=== PATIENT | female | born 1955 | race Hispanic/Latino ===

== ENCOUNTER 2021-01-30 06:13 | Day surgery (SDC) | payer MEDICARE ==
[2021-01-26 14:20] VITALS: BP 170/82
[2021-01-26 15:48] LABS: APPEARANCE,URINE SL CLOUDY (CLEAR); BILIRUBIN,URINE NEGATIVE (NEGATIVE); COLOR,URINE YELLOW (YELLOW); GLUCOSE, URINE (UA) NEGATIVE (NEGATIVE); KETONES,URINE NEGATIVE (NEGATIVE); LEUKOCYTE ESTERASE ,URINE MODERATE (NEGATIVE); NITRATE,URINE POSITIVE (NEGATIVE); OCCULT BLOOD,URINE NEGATIVE (NEGATIVE); PH,URINE 5.5 (5.0-8.0); PROTEIN,URINE 30 mg/dL (NEGATIVE); UROBILINOGEN,URINE 0.2 mg/dL (0.2-1.0)
[2021-01-26 15:54] LABS: BASOPHILS % (AUTO) 0.8 % (0.0-5.0); EOSINOPHILS % (AUTO) 1.8 % (0.0-8.0); HEMATOCRIT 38.6 % (36-48); LYMPHOCYTES % (AUTO) 35.2 % (21.0-51.0); MEAN CORPUSCULAR HEMOGLOBIN 28.3 pg (27.0-33.0); MEAN CORPUSCULAR HGB CONC 32.6 g/dL (32.0-36.0); MEAN CORPUSCULAR VOLUME 86.5 fL (79-99); MONOCYTES % (AUTO) 6.2 % (3.0-13.0); NEUTROPHILS % (AUTO) 55.5 % (40.0-77.0); PLATELET COUNT (AUTO) 206 K/uL (130-400); RED BLOOD CELL COUNT(AUTO) 4.46 MIL/uL (4.00-5.50); RED CELL DISTRIBUTION WIDTH 13.2 % (11.0-15.5); WHITE BLOOD COUNT (AUTO) 7.9 K/uL (4.8-10.8)
[2021-01-26 16:07] LABS: INR 1.05 (0.85-1.15); PROTHROMBIN TIME 11.4 SEC (9.6-11.6)
[2021-01-26 16:08] LABS: PARTIAL THROMBOPLASTIN TIME 28.7 SEC (26.3-35.5)
[2021-01-26 16:09] LABS: CREATININE 1.2 mg/dL (0.5-1.5); POTASSIUM 4.5 mmol/L (3.5-5.1)
[2021-01-26 16:58] LABS: BACTERIA,URINE Moderate /HPF (None Seen); RBC,URINE None Seen /HPF (0-1)
[~2021-01-30] VITALS: Ht 162.6 cm; Wt 84.7 kg
[2021-01-30] VITALS (24 sets, daily range): BP systolic 113–189; BP diastolic 45–80
[~2021-01-30 06:13] MED LIST: LISI20TA24 PO; METF-444 PO; SEMA1PEN3 SQ
[2021-01-30] MEDS ORDERED: HEPARIN 10,000 UNIT/10ML (1,000 UNIT/ML) VIAL ONE (07:21)
[2021-01-30] MEDS ORDERED: LIDOCAINE HCL 400MG/20ML VIAL ONE (07:22)
[2021-01-30] MEDS ORDERED: MIDAZOLAM HCL 1 MG/ML 2ML VIAL ONE ×2 (07:22→09:27)
[2021-01-30] MEDS ORDERED: NITROGLYCERIN 2 MG VIAL IV ONE (07:22)
[2021-01-30] MEDS ORDERED: FENTANYL CITRATE PF 50 MCG/1 ML 2ML VIAL ONE (07:22)
[2021-01-30] MEDS ORDERED: IODIXANOL 320 MG/ML 100 ML VIAL ONE (07:22)
[2021-01-30] MEDS ORDERED: AMLO-257 PO (07:41)
[2021-01-30] MEDS ORDERED: ALOE118C TP (08:00)
[2021-01-30] MEDS ORDERED: OXYB5TAB15 PO (08:00)
[2021-01-30] MEDS ORDERED: NEOM3.5O31 OP (08:00)
[2021-01-30] MEDS ORDERED: Therahoney Gel TP (08:00)
[2021-01-30] MEDS ORDERED: ATOR40TA71 PO (08:00)
[2021-01-30] MEDS ORDERED: ROPI0.5T7 PO (08:00)
[2021-01-30] MEDS ORDERED: ACET-66 PO (08:00)
[2021-01-30] MEDS ORDERED: LEVO50CA4 PO (08:00)
[2021-01-30] MEDS ORDERED: OLOP2.5D16 OP (08:00)
[2021-01-30] MEDS ORDERED: DOXY-336 PO (08:00)
[2021-01-30] MEDS ORDERED: NACL 0.9% 1000ML 1,000 ML IV ONE (08:04)
[2021-01-30] MEDS ORDERED: CLOPIDOGREL 300MG TAB ONE (09:43)
[2021-01-30] MEDS ORDERED: ASPIRIN 81MG CHEW TAB ONE (09:43)
[2021-01-30] MEDS ORDERED: PROTAMINE SULFATE 10 MG/ML 25ML VIAL IV ONE (09:51)
[2021-01-30] MEDS ORDERED: GLUCAGON 1MG KIT 1 MG ML IM PRN (10:00)
[2021-01-30] MEDS ORDERED: DEXTROSE 50%-WATER 50 ML DISP.SYRIN IV PRN (10:00)
[2021-01-30] MEDS ORDERED: METOPROLOL TARTRATE 1 MG/ML 5ML VIAL IV PRN (10:00)
[2021-01-30] MEDS ORDERED: HYDRALAZINE 20MG/ML VIAL IV PRN (10:00)
[2021-01-30] MEDS ORDERED: LABETALOL 20MG VIAL IV ONE (10:01)
[2021-01-30] MEDS ORDERED: NACL 0.9% 1000ML 1,000 ML IV SCH (10:45)
[2021-01-30] MEDS ORDERED: INSULIN HUMULIN R 100 UNIT/ML 3ML SQ SCH (11:30)
[2021-01-30] MEDS ORDERED: ATROPINE 1MG SYG IVP ONE (12:14)
== END 2021-01-30 17:45 | disposition home or self-care (01) ==
LOC: DAH 06:13
PROVIDERS: ATTEND Internal Medicine Cardiovascular Disease
DX: I70.245 Atherosclerosis of native arteries of left leg with ulceration of other part of foot (principal); E11.51 Type 2 diabetes mellitus with diabetic peripheral angiopathy without gangrene; I70.92 Chronic total occlusion of artery of the extremities; I11.9 Hypertensive heart disease without heart failure; I25.10 Atherosclerotic heart disease of native coronary artery without angina pectoris; E03.9 Hypothyroidism, unspecified; I50.32 Chronic diastolic (congestive) heart failure; E66.9 Obesity, unspecified; E78.5 Hyperlipidemia, unspecified; Z68.33 Body mass index [BMI] 33.0-33.9, adult; Z79.82 Long term (current) use of aspirin; Z79.899 Other long term (current) drug therapy; Z79.01 Long term (current) use of anticoagulants; Z95.1 Presence of aortocoronary bypass graft; Z86.73 Personal history of transient ischemic attack (TIA), and cerebral infarction without residual deficits; Z89.422 Acquired absence of other left toe(s); Z83.3 Family history of diabetes mellitus; Z79.4 Long term (current) use of insulin
CPT/HCPCS: 36415; 37226; 71045; 75630; 75774; 80048; 81001; 82948 ×2; 85025; 85610; 85730; 87077; 87088; 87186; 93005; C1725 ×3; C1769 ×3; C1876 ×2; C1887; C1893; C1894 ×2; J0360; J1644 ×2; J1815; J2250 ×2; J2720; J3010; J3490 ×3; J7030; Q9967; 99156; 99157; J0461